=== PATIENT | male | born 1935 | race Native Hawaiian/Other Pacific Islander ===

== ENCOUNTER 2018-07-22 16:15 | Outpatient (CLI) | payer OTHER ==
[2018-07-22] MEDS ORDERED: METO50TA27 PO (16:56)
[2018-07-22] MEDS ORDERED: SIMV40TA57 (16:56)
[2018-07-22] MEDS ORDERED: ASPIR-LOW81 MG PO (16:57)
[2018-07-22] MEDS ORDERED: TGT OMEPRAZOLE20 MG PO (16:58)
== END 2018-07-22 16:18 | disposition short-term general hospital (02) ==
LOC: AMB 16:15
DX: R11.2 Nausea with vomiting, unspecified (principal); X30.XXXA Exposure to excessive natural heat, initial encounter; Y92.241 Library as the place of occurrence of the external cause
CPT/HCPCS: A0425; A0427

== ENCOUNTER 2018-07-22 16:18 | Emergency (ER) | payer OTHER ==
[~2018-07-22] VITALS: Ht 177.8 cm; Wt 82.1 kg
[2018-07-22 16:47] LABS: PLATELET COUNT 238 K/uL (142-355)
[2018-07-22 16:52] LABS: POTASSIUM 3.6 mmol/L (3.6-5.2); SODIUM 140 mmol/L (136-145)
[2018-07-22] MEDS ORDERED: METO50TA27 PO (16:56)
[2018-07-22] MEDS ORDERED: SIMV40TA57 (16:56)
[2018-07-22 16:57] LABS: PARTIAL THROMBOPLASTIN TIME 18.5 SECONDS (24.5-33.6)
[2018-07-22] MEDS ORDERED: ASPIR-LOW81 MG PO (16:57)
[2018-07-22] MEDS ORDERED: TGT OMEPRAZOLE20 MG PO (16:58)
[2018-07-22 21:01] VITALS: BP 150/80; TEMP 97.7
== END 2018-07-22 21:05 | disposition home or self-care (01) ==
LOC: ED 16:18
PROVIDERS: Emergency Medicine
DX: R42 Dizziness and giddiness (principal); T67.5XXA Heat exhaustion, unspecified, initial encounter; X30.XXXA Exposure to excessive natural heat, initial encounter; Y92.89 Other specified places as the place of occurrence of the external cause
CPT/HCPCS: 80053; 81000; 82550; 82553; 84484; 85027; 85610; 85730; 93005; 96365; 96374; 99284; J2405